=== PATIENT | female | born 1975 | race African-American/Black ===

== ENCOUNTER 2017-10-26 20:31 | Emergency (ER) | payer OTHER ==
[~2017-10-26] VITALS: Ht 160 cm; Wt 131.1 kg
[2017-10-26 21:28] LABS: BASOPHILS # (AUTO) 0.1 (0.0-0.1); BASOPHILS % 0.6 % (0.0-1.0); EOSINOPHILS # (AUTO) 0.1 (0.0-0.4); EOSINOPHILS % 1.5 % (0.0-6.0); HEMATOCRIT 33.5 % (34.2-44.1); HEMOGLOBIN 10.4 g/dL (12.0-16.0); LYMPHOCYTES # (AUTO) 3.3 (1.0-3.2); LYMPHOCYTES % 37.3 % (18.0-39.1); MEAN CORPUSCULAR HEMOGLOBIN 27.2 pg (28-32); MEAN CORPUSCULAR VOLUME 87.5 fL (81-99); MONOCYTES # (AUTO) 0.6 (0.2-0.8); MONOCYTES % 7.3 % (4.4-11.3); NEUTROPHILS # (AUTO) 4.7 (2.1-6.9); NEUTROPHILS % 53.1 % (38.7-80.0); PLATELET COUNT 538 x10e3/uL (140-360); RED BLOOD COUNT 3.83 x10e6/uL (3.6-5.1); RED CELL DISTRIBUTION WIDTH 16.2 % (11.7-14.4)
[2017-10-26 21:33] LABS: PROTHROMBIN TIME 12.4 seconds (11.9-14.5)
[2017-10-26 21:34] LABS: PARTIAL THROMBOPLASTIN TIME 23.5 seconds (23.8-35.5)
--- NOTE | 2017-10-26 21:40 | Diagnostic Imaging Report ---
EXAMINATION: Head CT without contrast. HISTORY:Headache and vomiting. COMPARISON:None. TECHNIQUE: Multidetector axial images were obtained from the foramen magnum to the vertex without contrast. The images were reconstructed using brain and bone algorithms. Thin section brain images were reformatted into coronal and sagittal planes. Intravenous contrast: None IMAGE QUALITY: Acceptable. FINDINGS: Skull/scalp: No lytic or blastic. lesions. No surgical changes. Parenchyma: No abnormal density. No acute hemorrhage, mass or acute major vascular territorial infarct. Arteries: No density suggestive of thrombosis. Dural sinuses: No abnormal density suggestive of thrombosis. Ventricles: Thin slitlike ventricles. No hydrocephalus. 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 Extra-axial spaces: No abnormal density. Brain volume: Normal for age. Craniocervical junction: No mass, Chiari malformation, or basilar invagination. Sella: Mildly enlarged CSF filled empty sella. Paranasal/mastoid sinuses: Imaged portions unremarkable. IMPRESSION: 1. Mildly enlarged CSF filled empty sella associated with thin slitlike ventricles may represent idiopathic intracranial hypertension in appropriate clinical setting. 2. No other acute intracranial abnormality. Signed by: Dr. Nakita Skaggs M.D. on 10/26/2017 9:37 PM
[2017-10-26 21:43] LABS: ALANINE AMINOTRANSFERASE 29 IU/L (0-55); ALBUMIN 3.5 g/dL (3.5-5.0); ALBUMIN/GLOBULIN RATIO 0.6 (0.8-2.0); ALKALINE PHOSPHATASE 86 IU/L (40-150); ANION GAP 14.4 mmol/L (8-16); BLOOD UREA NITROGEN 13 mg/dL (7-26); BUN/CREATININE RATIO 16 (6-25); CALCIUM 9.8 mg/dL (8.4-10.2); CARBON DIOXIDE 22 mmol/L (22-29); CHLORIDE 103 mmol/L (98-107); CREATININE, SERUM 0.79 mg/dL (0.57-1.11); EST GLOMERULAR FILTRATION RATE > 60 ML/MIN (60-); GLUCOSE 94 mg/dL (74-118); POTASSIUM 4.4 mmol/L (3.5-5.1); SODIUM 135 mmol/L (136-145)
[2017-10-26] MEDS ORDERED: ACETAMIN/BUTALBITAL/CAFFEINE TAB PO ONE (22:00)
[2017-10-26] MEDS ORDERED: ONDANSETRON HCL 4 MG ORAL DISINTEGRATING TAB PO ONE (22:00)
[2017-10-26] MEDS ORDERED: METOCLOPRAMIDE HCL 10 MG TAB PO ONE (23:00)
[2017-10-26] MEDS ORDERED: TRAMADOL HCL 50 MG TAB PO ONE (23:00)
[2017-10-26] MEDS ORDERED: DIPHENHYDRAMINE HCL 25 MG CAP PO ONE (23:00)
[2017-10-27 00:15] VITALS: BP 144/98
[2017-10-27] MEDS ORDERED: BUTALBIT-ACETA1 EACH PO (00:15)
[2017-10-27] MEDS ORDERED: COUMADIN PO (00:15)
[2017-10-27] MEDS ORDERED: ZOFRAN ODT4 MG SL (00:15)
== END 2017-10-27 00:39 | disposition home or self-care (01) ==
LOC: ER 20:31
DX: G43.009 Migraine without aura, not intractable, without status migrainosus (principal)
CPT/HCPCS: 36415; 70450; 80053; 85025; 85610; 85730; 99283